=== PATIENT | male | born 1970 | race Caucasian/White ===

== ENCOUNTER 2019-04-20 20:11 | Inpatient (IN) | payer SELFPAY ==
[~2019-04-20] VITALS: Ht 188 cm; Wt 94.0 kg
[2019-04-20] MEDS ORDERED: IV NORMAL SALINE 1,000ML 1,000 ML IV ONE (20:45)
[2019-04-20] MEDS ORDERED: ONDANSETRON PF 4 MG/2 ML VIAL. IVP ONE (20:45)
[2019-04-20] MEDS ORDERED: MORPHINE SULFATE 4 MG/ML DISP.SYRIN. IV ONE (20:45)
--- NOTE | 2019-04-20 20:56 | RAD ---
Exam: Right knee 3 views INDICATION: Pain, twisted TECHNIQUE: Frontal, lateral and oblique views of the right knee. Comparisons: None FINDINGS: There is apparent lateral dislocation of the patella. Partially visualized anterior grade intramedullary jesus within the tibia with 2 fixation screws. No acute fractures. Small suprapatellar effusion. Diffuse soft tissue edema at the knee. IMPRESSION: On frontal view there is apparent lateral dislocation of the patella. Correlate with physical exam. This can be confirmed with a sunrise view of the knee. Electronically signed by: Raymundo Conn MD (04/20/2019 8:53 PM) [facility]
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
[2019-04-20 21:32] LABS: BASO # 0.1 x10^3/uL (0.0-0.2); BASO % 1 % (0-3); EOS # 0.1 x10^3/uL (0.0-0.7); EOS % 2 % (0-3); HEMATOCRIT 20.3 % (39.0-53.0); LYMPH # 1.1 x10^3/uL (1.0-4.8); LYMPH % 18 % (24-48); MEAN CORPUSCULAR HEMOGLOBIN 30 pg (25-35); MEAN CORPUSCULAR HGB CONC 33 g/dL (31-37); MEAN CORPUSCULAR VOLUME 93 fL (79-100); MONO # 0.7 x10^3/uL (0.0-1.1); MONO % 12 % (0-9); NEUT # 4.1 x10^3uL (1.8-7.7); NEUT % 67 % (31-73); PLATELET COUNT 379 x10^3/uL (140-400); RED BLOOD COUNT 2.19 x10^6/uL (4.30-5.70); RED CELL DISTRIBUTION WIDTH 13.6 % (11.5-14.5); WHITE BLOOD COUNT 6.2 x10^3/uL (4.0-11.0)
[2019-04-20 21:33] LABS: HEMOGLOBIN 6.7 g/dL (13.0-17.5)
--- NOTE | 2019-04-20 21:54 | RAD ---
Exam: Right knee 4 views INDICATION: Post reduction TECHNIQUE: Frontal, lateral and oblique and sunrise views of the right knee Comparisons: Radiograph same day FINDINGS: On sunrise views the patella is well seated. There is diffuse soft tissue swelling around the ankle. 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 Redemonstration of postsurgical changes. IMPRESSION: Patella appears well seated on sunrise view. No patellar dislocation. Electronically signed by: Raymundo Conn MD (04/20/2019 9:51 PM) [facility]
[2019-04-20 22:30] LABS: ALBUMIN 2.6 g/dL (3.4-5.0); ALBUMIN/GLOBULIN RATIO 0.8 (1.0-1.7); CALCIUM 8.2 mg/dL (8.5-10.1); CREATININE 1.2 mg/dL (0.7-1.3); GFR 64.9; POTASSIUM 4.1 mmol/L (3.5-5.1); TOTAL BILIRUBIN 0.2 mg/dL (0.2-1.0); TOTAL PROTEIN 5.8 g/dL (6.4-8.2)
[2019-04-20 23:30] VITALS: BP 113/69
[2019-04-20] MEDS ORDERED: ONDANSETRON PF 4 MG/2 ML VIAL. IV PRN (23:30)
[2019-04-21] VITALS (8 sets, daily range): BP systolic 111–134; BP diastolic 61–78
[2019-04-21] MEDS ORDERED: ZOLPIDEM 5 MG TABLET. PO PRN
[2019-04-21] MEDS ORDERED: MORPHINE SULFATE 2 MG/ML DISP.SYRIN. ONE
[2019-04-21] MEDS ORDERED: ACETAMINOPHEN 500 MG TABLET PO PRN
[2019-04-21] MEDS: MORPHINE SULFATE 2 MG/ML DISP.SYRIN. IV PRN ×3 (00:08→11:49)
[2019-04-21 03:07] LABS: HEMATOCRIT 26.3 % (39.0-53.0); HEMOGLOBIN 8.4 g/dL (13.0-17.5)
[2019-04-21 06:21] LABS: BASO # 0.1 x10^3/uL (0.0-0.2); BASO % 1 % (0-3); EOS # 0.2 x10^3/uL (0.0-0.7); EOS % 3 % (0-3); HEMATOCRIT 26.5 % (39.0-53.0); HEMOGLOBIN 8.7 g/dL (13.0-17.5); LYMPH # 1.6 x10^3/uL (1.0-4.8); LYMPH % 24 % (24-48); MEAN CORPUSCULAR HEMOGLOBIN 30 pg (25-35); MEAN CORPUSCULAR HGB CONC 33 g/dL (31-37); MEAN CORPUSCULAR VOLUME 91 fL (79-100); MONO # 0.6 x10^3/uL (0.0-1.1); MONO % 10 % (0-9); NEUT % 62 % (31-73); PLATELET COUNT 388 x10^3/uL (140-400); RED CELL DISTRIBUTION WIDTH 13.8 % (11.5-14.5); WHITE BLOOD COUNT 6.4 x10^3/uL (4.0-11.0)
[2019-04-21 11:44] LABS: BASO # 0.1 x10^3/uL (0.0-0.2); BASO % 1 % (0-3); EOS # 0.2 x10^3/uL (0.0-0.7); EOS % 3 % (0-3); HEMOGLOBIN 8.5 g/dL (13.0-17.5); LYMPH # 1.1 x10^3/uL (1.0-4.8); LYMPH % 16 % (24-48); MEAN CORPUSCULAR HEMOGLOBIN 30 pg (25-35); MEAN CORPUSCULAR HGB CONC 33 g/dL (31-37); MEAN CORPUSCULAR VOLUME 91 fL (79-100); MONO # 0.5 x10^3/uL (0.0-1.1); MONO % 8 % (0-9); NEUT # 4.9 x10^3uL (1.8-7.7); NEUT % 72 % (31-73); PLATELET COUNT 395 x10^3/uL (140-400); RED BLOOD COUNT 2.84 x10^6/uL (4.30-5.70); RED CELL DISTRIBUTION WIDTH 13.8 % (11.5-14.5); WHITE BLOOD COUNT 6.8 x10^3/uL (4.0-11.0)
[2019-04-21] MEDS: IV NORMAL SALINE 1,000ML 1,000 ML IV SCH ×2 (11:48→21:45)
[2019-04-21 11:56] LABS: ALBUMIN 2.8 g/dL (3.4-5.0); ALBUMIN/GLOBULIN RATIO 0.8 (1.0-1.7); C REACTIVE PROTEIN 12.6 mg/L (0-3.3); CALCIUM 8.3 mg/dL (8.5-10.1); GFR 80.1; POTASSIUM 3.8 mmol/L (3.5-5.1); TOTAL BILIRUBIN 0.3 mg/dL (0.2-1.0); TOTAL PROTEIN 6.2 g/dL (6.4-8.2)
[2019-04-21 12:49] LABS: SEDIMENTATION RATE 30 (0-15)
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
[2019-04-21] MEDS: MORPHINE SULFATE 4 MG/ML DISP.SYRIN. IV PRN ×2 (14:56→19:49)
[2019-04-21 15:31] LABS: HEMATOCRIT 25.5 % (39.0-53.0); HEMOGLOBIN 8.3 g/dL (13.0-17.5)
[2019-04-21 15:45] LABS: CALCIUM 8.2 mg/dL (8.5-10.1); GFR 80.1; POTASSIUM 3.9 mmol/L (3.5-5.1)
--- NOTE | 2019-04-21 16:11 | RAD ---
EXAM: Right lower extremity venous Doppler sonogram. HISTORY: Pain and swelling. TECHNIQUE: Gonzales scale and color Doppler sonographic evaluation of the right lower extremity veins with spectral waveform analysis was performed. FINDINGS: There is normal color flow, normal compressibility and there are normal spectral waveforms in the common femoral, superficial femoral, popliteal, posterior tibial and greater saphenous veins. The calf veins are not well seen due to soft tissue edema. IMPRESSION: No Doppler evidence of lower extremity deep venous thrombosis. Electronically signed by: Judie Miranda MD (04/21/2019 4:08 PM) [place] [id number]
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
[2019-04-22] MEDS: IV NORMAL SALINE 1,000ML 1,000 ML IV SCH (02:10)
[2019-04-22] MEDS: MORPHINE SULFATE 4 MG/ML DISP.SYRIN. IV PRN ×2 (05:02→16:35)
[2019-04-22 05:11] VITALS: BP 132/76
[2019-04-22 08:40] LABS: HEMATOCRIT 28.7 % (39.0-53.0); HEMOGLOBIN 9.5 g/dL (13.0-17.5); RED BLOOD COUNT 3.16 x10^6/uL (4.30-5.70); RED CELL DISTRIBUTION WIDTH 13.6 % (11.5-14.5); WHITE BLOOD COUNT 6.8 x10^3/uL (4.0-11.0)
[2019-04-22 08:57] LABS: ALBUMIN 2.9 g/dL (3.4-5.0); ALBUMIN/GLOBULIN RATIO 0.8 (1.0-1.7); CALCIUM 8.4 mg/dL (8.5-10.1); CREATININE 0.9 mg/dL (0.7-1.3); GFR 90.4; POTASSIUM 3.7 mmol/L (3.5-5.1); TOTAL BILIRUBIN 0.5 mg/dL (0.2-1.0); TOTAL PROTEIN 6.5 g/dL (6.4-8.2)
[2019-04-22 10:45] VITALS: BP 130/72
[2019-04-22] MEDS ORDERED: HYDR-2155 PO (13:21)
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
== END 2019-04-22 17:00 | disposition home or self-care (01) | DRG 563 ==
LOC: ER 20:11 → 1 SOUTH 23:22
PROVIDERS: ADMIT Family Medicine; ATTEND Internal Medicine
PROC: 30233N1 Transfusion of Nonautologous Red Blood Cells into Peripheral Vein, Percutaneous Approach (ICD-10-PCS; principal; 2019-04-20)
DX: S83.004A Unspecified dislocation of right patella, initial encounter (principal); D64.9 Anemia, unspecified; B18.2 Chronic viral hepatitis C; F12.90 Cannabis use, unspecified, uncomplicated; F17.210 Nicotine dependence, cigarettes, uncomplicated; Y93.89 Activity, other specified; Y99.8 Other external cause status; W34.00XA Accidental discharge from unspecified firearms or gun, initial encounter; Y92.89 Other specified places as the place of occurrence of the external cause
CPT/HCPCS: 27560; 36415; 73562; 73564; 73700; 80048; 80053; 82550; 83605; 85014; 85018; 85025; 85027; 85651; 86140; 86850; 86900; 86901; 86920; 93971; 96361; 96374; 96375; J2270; J2405; P9016; 99285-25; J7030

== ENCOUNTER 2019-12-16 05:11 | Emergency (ER) | payer SELFPAY ==
[~2019-12-16] VITALS: Ht 188 cm; Wt 95.2 kg
[~2019-12-16 05:11] MED LIST: HYDR-2155 PO
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
[2019-12-16] MEDS ORDERED: IV RINGERS SOLUTION,LACTATED 1,000 ML IV SCH (05:30)
--- NOTE | 2019-12-16 05:42 | EKG ---
[address] [address] Test Date: 2019-12-16 Test Time: 05:37:08 Pat Name: MADELEINE CASTELAN Department: Room: Gender: M Tagman: : 1970 Requested By: MADELEINE MATHUR Order Number: [id number] Reading MD: Wilfred Cameron Measurements Intervals [place] Rate: 96 P: 48 [place]: 132 QRS: 42 QRSD: 82 T: 30 QT: 358 QTc: 453 Interpretive Statements SINUS RHYTHM Electronically Signed On 12-16-2019 12:08:20 CDT by Wilfred Cameron
[2019-12-16] MEDS ORDERED: VANCOMYCIN 1 GM in IV NORMAL SALINE 250ML 250 ML IV ONE (05:45)
[2019-12-16] MEDS ORDERED: cefTRIAXone IM 1 GM VIAL IM ONE (05:45)
[2019-12-16] MEDS ORDERED: ENOXAPARIN ** NOTE DOSE ** SYRINGE SQ ONE (05:45)
[2019-12-16] MEDS ORDERED: IV NORMAL SALINE 250ML 250 ML ONE (06:03)
[2019-12-16] MEDS ORDERED: VANCOMYCIN 1 GM VIAL. ONE (06:03)
[2019-12-16] MEDS ORDERED: IV NORMAL SALINE 100ML 100 ML ONE (06:04)
[2019-12-16 06:07] LABS: BASO # 0.1 x10^3/uL (0.0-0.2); BASO % 1 % (0-3); EOS # 0.3 x10^3/uL (0.0-0.7); EOS % 4 % (0-3); HEMATOCRIT 35.9 % (39.0-53.0); HEMOGLOBIN 12.1 g/dL (13.0-17.5); LYMPH # 1.2 x10^3/uL (1.0-4.8); LYMPH % 16 % (24-48); MEAN CORPUSCULAR HEMOGLOBIN 30 pg (25-35); MEAN CORPUSCULAR HGB CONC 34 g/dL (31-37); MEAN CORPUSCULAR VOLUME 90 fL (79-100); MONO # 0.7 x10^3/uL (0.0-1.1); MONO % 10 % (0-9); NEUT # 5.2 x10^3uL (1.8-7.7); NEUT % 69 % (31-73); PLATELET COUNT 280 x10^3/uL (140-400); RED BLOOD COUNT 4.01 x10^6/uL (4.30-5.70); RED CELL DISTRIBUTION WIDTH 13.5 % (11.5-14.5); WHITE BLOOD COUNT 7.6 x10^3/uL (4.0-11.0)
--- NOTE | 2019-12-16 06:12 | RAD ---
EXAM: PA, oblique and lateral views right DATE: 12/16/2019 5:30 AM INDICATION: Reason: Right hand pain, swelling / COMPARISON: No Prior FINDINGS/ IMPRESSION: 1. No evidence of acute fracture or dislocation. If there is persistent clinical concern for fracture, follow-up radiographs in 10-14 days is recommended. 2. Mild degenerative changes at scattered IP joints. Electronically signed by: Sunny Pate MD (12/16/2019 6:10 AM) [id number]
--- NOTE | 2019-12-16 06:14 | RAD ---
EXAM: AP and lateral views the right tibia/fibula DATE: 12/16/2019 5:30 AM INDICATION: Right lower leg pain, swelling, redness COMPARISON: No Prior FINDINGS: IM nail fixation of the tibia with old/healed fracture of the midshaft tibia. Metallic densities are seen within the associated soft tissues. Soft tissue swelling about the right lower extremity. No acute fracture or dislocation. IMPRESSION: No acute fracture or dislocation. Electronically signed by: Sunny Pate MD (12/16/2019 6:11 AM) [id number]
--- NOTE | 2019-12-16 06:15 | RAD ---
EXAM: AP View of the chest DATE: 12/16/2019 5:30 AM INDICATION: Dyspnea COMPARISON: No Prior FINDINGS: The heart is not enlarged. Mediastinal and hilar contours are normal. Lungs are clear. Emphysematous changes are suspected. No pleural effusion or pneumothorax. IMPRESSION: 1. No radiographic evidence for acute cardiopulmonary process. 2. Emphysematous changes are suspected Electronically signed by: Sunny Pate MD (12/16/2019 6:12 AM) [id number]
[2019-12-16 06:33] LABS: CALCIUM 8.1 mg/dL (8.5-10.1); CREATININE 0.9 mg/dL (0.7-1.3); GFR 90.1; POTASSIUM 3.8 mmol/L (3.5-5.1)
[2019-12-16 06:45] LABS: ALBUMIN 2.9 g/dL (3.4-5.0); C REACTIVE PROTEIN 23.3 mg/L (0-3.3); DIRECT BILIRUBIN 0.1 mg/dL (0.0-0.2); MAGNESIUM 2.1 mg/dL (1.8-2.4); TOTAL BILIRUBIN 0.2 mg/dL (0.2-1.0); TOTAL PROTEIN 6.3 g/dL (6.4-8.2)
[2019-12-16 07:30] VITALS: BP 125/68
[2019-12-16 07:43] LABS: AMORPHOUS SEDIMENT,UR PRESENT /HPF; BACTERIA,URINE 0 /HPF (0-FEW); BILIRUBIN,URINE NEG (NEG); CLARITY,URINE HAZY; COLOR,URINE YELLOW; GLUCOSE,URINE NEG (NEG); NITRITE,URINE NEG (NEG); RBC,URINE 0 /HPF (0-2); UROBILINOGEN,URINE 0.2 mg/dL (0.2 mg/dL); WBC,URINE OCC /HPF (0-4)
[2019-12-16 07:44] LABS: BARBITURATES NEG (NEG); BENZODIAZEPINES NEG (NEG); CANNABINOIDS POS (NEG); COCAINE POS (NEG); METHADONE NEG (NEG); OPIATES NEG (NEG); PHENCYCLIDINE NEG (NEG)
[2019-12-16 07:50] LABS: AMPHETAMINE/METHAMPHETAMINE POS (NEG)
--- NOTE | 2019-12-16 08:51 | RAD ---
VENOUS LOWER EXTREMITY RIGHT History: Reason: edema and pain , hx of DVT / Spl. Instructions: / History: Comparison: None. Discussion: Multiple longitudinal and transverse high resolution real-time images of the venous system of right lower extremity were obtained with color and Doppler sampling. The common femoral, superficial femoral, popliteal and proximal calf veins are all patent and demonstrate normal flow and compressibility. Normal respiratory phasicity and augmentation is present. Right inguinal enlarged lymph node measures 2.8 x 2.2 x 1.2 cm. The right lower extremity subcutaneous edema. Impression: 1. No evidence of deep vein thrombosis. 2. Enlarged right inguinal lymph node, may represent reactive lymphadenopathy although lymphoproliferative process is not excluded. Recommend follow-up and further clinical evaluation if indicated. Electronically signed by: Tristin Lynch DO (12/16/2019 8:48 AM) [facility]
[2019-12-16] MEDS ORDERED: CEPH500T PO (09:27)
== END 2019-12-16 09:46 | disposition home or self-care (01) ==
LOC: ER 05:11
DX: L03.115 Cellulitis of right lower limb (principal); F15.10 Other stimulant abuse, uncomplicated; M79.641 Pain in right hand; F17.210 Nicotine dependence, cigarettes, uncomplicated; Z86.718 Personal history of other venous thrombosis and embolism; Z86.14 Personal history of Methicillin resistant Staphylococcus aureus infection
CPT/HCPCS: 36415; 71045; 73130; 73590; 80048; 80076; 80307; 81001; 82550; 83605; 83690; 83735; 83880; 84443; 84484; 85025; 85379; 85610; 85730; 86140; 87040; 93005; 93971; 96365; 96367; 96372; 99285; J0696; J1650; J3370; J7050; J7120